=== PATIENT | male | born 1945 | race Caucasian/White ===

== ENCOUNTER 2017-02-02 09:33 | Inpatient (IN) | payer MEDICARE ==
[~2017-02-02] VITALS: Ht 170.1 cm; Wt 77.3 kg
[2017-02-02 09:41] VITALS: BP 129/75
[2017-02-02 10:08] LABS: BASO # 0.1 10*3/uL (0.0-0.1); BASO % 0.5 % (0.0-1.0); EOS # 0.3 10*3/uL (0.0-0.4); EOS % 2.5 % (1.0-4.0); HEMATOCRIT 43.7 % (42.0-52.0); HEMOGLOBIN 14.3 g/dl (14.0-18.0); LYMPH # 3.1 10*3/uL (1.3-4.4); MEAN CELL VOLUME 98.2 fl (80.0-94.0); MEAN CORPUSCULAR HGB 32.1 pg (27.0-31.0); MEAN CORPUSCULAR HGB CONC 32.7 g/dl (33.0-37.0); MEAN PLATELET VOLUME 8.7 fl (9.6-12.3); MONO # 0.5 10*3/uL (0.1-1.0); MONO % 4.4 % (3.0-9.0); NEUT # 7.6 10*3/uL (2.3-7.9); NEUT % 65.3 % (47.0-73.0); PLATELET COUNT AUTOMATED 211 10*3/uL (130-400); RED BLOOD COUNT 4.45 10*6/uL (4.50-5.90); RED CELL DISTRI WIDTH 13.9 % (0-14.5); WHITE BLOOD COUNT 11.6 10*3/uL (4.8-10.8)
[2017-02-02 10:23] LABS: ALBUMIN 4.1 gm/dl (3.1-4.5); ALKALINE PHOSPHATASE 60 U/L (45-117); BUN 29 mg/dl (7-24); CHLORIDE 106 mmol/L (98-107); CREATININE 1.75 mg/dL (0.70-1.30); LIPASE 140 U/L (73-393); MAGNESIUM 2.4 mg/dL (1.5-2.1); POTASSIUM 4.2 mmol/L (3.5-5.1); SGOT/AST 26 IU/L (3-35); SGPT/ALT 26 U/L (12-78); SODIUM 142 mmol/L (136-145)
[2017-02-02 10:26] LABS: TROPONIN I < 0.015 ng/ml (<0.045)
[2017-02-02 10:39] LABS: ACT PARTIAL THROMBO TIME 24.8 SECONDS (20.8-31.5); INTERNATIONAL NORM RATIO 1.8 (2.0-3.5)
--- NOTE | 2017-02-02 11:52 | NUR ---
ccA 71, admitted to , under the services of ANKIT Marroquin DO with a diagnosis of syncope. Chief complaint is syncopal episode. Patient arrived via ambulance from ER. Monitor applied. Initial assessment completed. Vital signs taken and recorded. ANKIT MARROQUIN DO notified of admission to the unit. Orders received. See assessment for past medical history, medications and allergies. Patient and/or family oriented to unit. [facility] visitation policy reviewed. Clothing/patient valuable form completed. JIMENA HOBSON
[2017-02-02 12:00] VITALS: BP 117/61
--- NOTE | 2017-02-02 12:00 | NUR ---
VINCE ACOSTA IN TO SEE PATIENT REGARDING ADMISSION ORDERS.
[2017-02-02 12:02] VITALS: BP 117/61
[2017-02-02] MEDS ORDERED: ASPIRIN ADULT L81 M1 PO (12:05)
[2017-02-02] MEDS ORDERED: ALDACTONE25 M1 PO (12:06)
[2017-02-02] MEDS ORDERED: COUMADIN4 M2 PO (12:06)
[2017-02-02] MEDS ORDERED: LASIX40 MG PO (12:06)
[2017-02-02] MEDS ORDERED: COREG25 MG PO (12:08)
[2017-02-02] MEDS ORDERED: LIPITOR40 MG PO (12:09)
[2017-02-02] MEDS ORDERED: COZAAR100 MG PO (12:10)
[2017-02-02] MEDS ORDERED: TYLENOL325 M1 PO (12:11)
[2017-02-02] MEDS ORDERED: PROTONIX40 MG PO (12:11)
--- NOTE | 2017-02-02 12:11 | NUR ---
PATIENT PROVIDED LIST OF MEDICATIONS TO THIS RN. MEDS UPDATED PER POLICY.
--- NOTE | 2017-02-02 12:26 | NUR ---
DR Homa CA NOTIFED OF CRITICAL LACTIC ACID OF 2.7
--- NOTE | 2017-02-02 13:08 | NUR ---
AWARE OF CONSULT.
--- NOTE | 2017-02-02 14:43 | NUR ---
VINCE ACOSTA NOTIFIED REGARDING CRITICAL LACTIC ACID.
--- NOTE | 2017-02-02 15:21 | NUR ---
PACER INTERROGATED. NO DIFFICULTIES NOTED PER PACER REP.
[2017-02-02 16:00] VITALS: BP 109/61
--- NOTE | 2017-02-02 18:19 | NUR ---
ORTHO'S PERFORMED PER ORDER. PT REMAINS ASYMPTOMATIC. SUPINE BP 131/74, PULSE 75. SITTING BP 127/77, PULSE 86. STANDING BP 135/84, PULSE 94. WILL CONTINUE TO MONITOR. IVF MAINTAINED PER ORDER.
--- NOTE | 2017-02-02 19:30 | NUR ---
ASSUMED CARE OF PT AT THIS TIME, CALL LIGHT WITH IN REACH
[2017-02-02 20:00] VITALS: BP 129/68
[2017-02-03] VITALS: BP 124/67
--- NOTE | 2017-02-03 02:36 | NUR ---
RESTING IN BED WITH EYES CLOSED RESPS EASY AND NONLABORED WITH NO S/S OF DISTRESS CALL LIGHT WITH IN REACH
[2017-02-03 06:02] LABS: BASO # 0.1 10*3/uL (0.0-0.1); BASO % 0.5 % (0.0-1.0); EOS # 0.5 10*3/uL (0.0-0.4); EOS % 4.2 % (1.0-4.0); HEMATOCRIT 38.3 % (42.0-52.0); HEMOGLOBIN 12.5 g/dl (14.0-18.0); LYMPH % 27.3 % (27.0-41.0); MEAN CORPUSCULAR HGB CONC 32.6 g/dl (33.0-37.0); MONO # 1.1 10*3/uL (0.1-1.0); MONO % 9.6 % (3.0-9.0); NEUT # 6.4 10*3/uL (2.3-7.9); PLATELET COUNT AUTOMATED 192 10*3/uL (130-400); RED BLOOD COUNT 3.91 10*6/uL (4.50-5.90); RED CELL DISTRI WIDTH 14.1 % (0-14.5); WHITE BLOOD COUNT 11.1 10*3/uL (4.8-10.8)
[2017-02-03 06:28] LABS: ALBUMIN 3.4 gm/dl (3.1-4.5); ALKALINE PHOSPHATASE 51 U/L (45-117); BUN 26 mg/dl (7-24); CHLORIDE 109 mmol/L (98-107); CHOLESTEROL 142 mg/dL (<200); CREATININE 1.24 mg/dL (0.70-1.30); FREE T4 0.97 ng/dl (0.76-1.46); HDL CHOLESTEROL 51 mg/dl (40-60); LDL CHOLESTEROL 75 mg/dL (9-159); MAGNESIUM 2.2 mg/dL (1.5-2.1); PHOSPHOROUS 2.9 mg/dL (2.5-4.9); POTASSIUM 3.9 mmol/L (3.5-5.1); SGOT/AST 21 IU/L (3-35); SGPT/ALT 22 U/L (12-78); SODIUM 142 mmol/L (136-145); TOTAL PROTEIN 6.7 gm/dL (6.4-8.2); TRIGLYCERIDES 82 mg/dl (<150); VLDL CHOLESTEROL 16 mg/dL (6-40)
[2017-02-03 06:39] LABS: INTERNATIONAL NORM RATIO 2.7 (2.0-3.5)
[2017-02-03 07:49] LABS: VITAMIN D, 25-HYDROXY 32.8 ng/mL (30-100)
[2017-02-03 08:00] VITALS: BP 143/78
--- NOTE | 2017-02-03 08:00 | NUR ---
PATIENT RESTING COMFORTABLY IN BED, DENIES ANY PAIN OR DISCOMFORT AT THIS TIME CALL LIGHT WITHIN REACH. SEE MORNING SHIFT ASSESSMENT.
--- NOTE | 2017-02-03 10:43 | NUR ---
[facility] in to talk to patient. Patient states lives at home with . There are 2 story home steps in the home. Physician: shawn from [place] Pharmacy: [facility] Home health services: [facility] Patient's level of ADLs: INDEPENDENT Patient has working utilities: y DME: none Follow-up physician's appointment after d/c: self Does patient want to access PORTAL?: no Discharge plan home. Patient here on golfing trip from [place]. Will return home upon discharge, no needs. NEL SHORT
[2017-02-03 12:00] VITALS: BP 139/79
--- NOTE | 2017-02-03 15:44 | NUR ---
Discharge instructions reviewed with patient/family. Patient receptive and verbalizes understanding. Follow-up care arranged. Written instructions given to patient/family. PATIENT AMBULATORY, [place] REMOVED. PABLO RUIZ
== END 2017-02-03 15:45 | disposition home or self-care (01) | DRG 640 ==
LOC: ED 09:33 → EDHOLD 11:05 → 4E 11:05
PROVIDERS: Emergency Medicine; Registered Nurse; ADMIT Internal Medicine
PROC: 4B02XTZ Measurement of Cardiac Defibrillator, External Approach (ICD-10-PCS; principal; 2017-02-02)
DX: E86.0 Dehydration (principal); N17.0 Acute kidney failure with tubular necrosis; E87.2 Acidosis; D68.9 Coagulation defect, unspecified; I50.42 Chronic combined systolic (congestive) and diastolic (congestive) heart failure; I11.0 Hypertensive heart disease with heart failure; R55 Syncope and collapse; K21.9 Gastro-esophageal reflux disease without esophagitis; E78.00 Pure hypercholesterolemia, unspecified; I25.10 Atherosclerotic heart disease of native coronary artery without angina pectoris; I25.2 Old myocardial infarction; Z86.718 Personal history of other venous thrombosis and embolism; Z95.810 Presence of automatic (implantable) cardiac defibrillator; Z90.49 Acquired absence of other specified parts of digestive tract; Z95.5 Presence of coronary angioplasty implant and graft; Z82.49 Family history of ischemic heart disease and other diseases of the circulatory system; Z79.82 Long term (current) use of aspirin; Z79.01 Long term (current) use of anticoagulants